=== PATIENT | female | born 1960 | race Two or more races ===

== ENCOUNTER → 2023-09-27 07:54 | Outpatient (CLI) | payer OTHER | END | disposition home or self-care (01) | LOC: SONOGRAMA 07:54 | PROVIDERS: ATTEND Pathology Anatomic Pathology & Clinical Pathology | DX: D44.0 Neoplasm of uncertain behavior of thyroid gland (principal) ==

== ENCOUNTER 2023-10-15 10:34 | Outpatient (CLI) | payer OTHER | END 2023-10-15 10:36 | disposition home or self-care (01) | LOC: SONOGRAMA 10:34 | PROVIDERS: ATTEND Orthopaedic Surgery | DX: M25.511 Pain in right shoulder (principal); M25.512 Pain in left shoulder ==

== ENCOUNTER 2024-04-24 07:24 | Outpatient (CLI) | payer OTHER | END 2024-04-24 07:26 | disposition home or self-care (01) | LOC: SONOGRAMA 07:24 | PROVIDERS: ATTEND Pathology Anatomic Pathology & Clinical Pathology | DX: D34 Benign neoplasm of thyroid gland (principal); E07.89 Other specified disorders of thyroid; E04.2 Nontoxic multinodular goiter ==